=== PATIENT | male | born 1940 | race Caucasian/White ===

== ENCOUNTER 2023-03-10 17:19 | Emergency (ER) | payer OTHER ==
[2023-03-10 19:12] LABS: BASOPHILS ABSOLUTE AUTO 0.02 K/mm3 (0.01-0.08); BASOPHILS PERCENT AUTO 0.2 % (0.1-1.2); EOSINOPHILS ABSOLUTE AUTO 0.03 K/mm3 (0.04-0.54); EOSINOPHILS PERCENT AUTO 0.3 (0.8-7.0); HEMATOCRIT 45.6 % (40.1-51.0); HEMOGLOBIN 15.6 gm/dl (13.7-17.5); IMMATURE GRAN ABSOLUTE AUTO 0.02 K/mm3 (0.00-0.10); IMMATURE GRAN PERCENT AUTO 0.2 % (<=1.0); LYMPHOCYTES ABSOLUTE AUTO 1.42 K/mm3 (1.32-3.57); LYMPHOCYTES PERCENT AUTO 13.8 % (21.8-53.1); MEAN CORPUSCULAR HEMOGLOBIN 29.9 pg (25.7-32.2); MEAN CORPUSCULAR HGB CONC 34.2 g/dl (32.2-35.5); MEAN CORPUSCULAR VOLUME 87.4 fl (79.0-92.2); MEAN PLATELET VOLUME 10.1 fl (9.4-12.3); MONOCYTES ABSOLUTE AUTO 0.71 K/mm3 (0.30-0.82); MONOCYTES PERCENT AUTO 6.9 % (5.3-12.2); NEUTROPHILS ABSOLUTE AUTO 8.07 K/mm3 (1.78-5.38); NEUTROPHILS PERCENT AUTO 78.6 % (34.0-67.9); PLATELET COUNT,PLT 204 K/mm3 (163-337); RED BLOOD CELL COUNT 5.22 M/mm3 (4.63-6.08); WHITE BLOOD CELL COUNT,WBC 10.27 K/mm3 (4.23-9.07)
[2023-03-10 19:35] LABS: A/G RATIO 1.1 (1-2); ALBUMIN 3.9 g/dl (3.4-5.0); BILIRUBIN TOTAL 0.9 mg/dL (0.2-1.0); CALCIUM 9.1 mg/dL (8.5-10.1); EST CRCL DRUG DOSING (CG) 54.15 mL/min; PROTEIN TOTAL,TP 7.6 g/dl (6.4-8.2)
[2023-03-10 19:36] LABS: INR 1.07; PROTHROMBIN TIME 11.4 SECONDS (9.7-12.0)
[2023-03-10] MEDS ORDERED: Lactated Ringers 1,000 ML IV ONE (19:40)
== END 2023-03-10 21:15 | disposition home or self-care (01) ==
LOC: JD.ED 17:19
DX: R53.83 Other fatigue (principal); R06.00 Dyspnea, unspecified; R55 Syncope and collapse
CPT/HCPCS: 36415; 71045; 71045-26; 80053; 83735; 84484; 85025; 85379; 85610; 85730; 93005; 93010; 99283; 99285